=== PATIENT | female | born 1975 | race Native Hawaiian/Other Pacific Islander ===

== ENCOUNTER 2016-07-12 12:47 | Outpatient (CLI) | payer BC | END 2016-07-12 12:51 | disposition short-term general hospital (02) | LOC: AMB 12:47 | DX: R53.1 Weakness (principal); R00.0 Tachycardia, unspecified; I10 Essential (primary) hypertension | CPT/HCPCS: A0425; A0427 ==

== ENCOUNTER 2016-07-12 12:52 | Emergency (ER) | payer BC ==
[~2016-07-12] VITALS: Ht 180.3 cm; Wt 115.2 kg
[2016-07-12 13:00] VITALS: TEMP 98.3
[2016-07-12 16:00] VITALS: BP 150/78
== END 2016-07-12 19:18 | disposition home or self-care (01) ==
LOC: ED 12:52
DX: T78.49XA Other allergy, initial encounter (principal)
CPT/HCPCS: 96361; 96374; 96375; 99284; J1100; J1200

== ENCOUNTER 2017-03-16 09:28 | Outpatient (CLI) | payer BC | END 2017-03-16 10:30 | disposition home or self-care (01) | LOC: MAMMO 09:28 | DX: Z12.31 Encounter for screening mammogram for malignant neoplasm of breast (principal) ==

== ENCOUNTER → 2017-05-06 09:04 | Outpatient (CLI) | payer BC | END | disposition home or self-care (01) | LOC: MAMMO 04-20 09:00 | DX: R92.2 Inconclusive mammogram (principal) ==

== ENCOUNTER 2017-06-16 13:57 | Emergency (ER) | payer BC ==
[~2017-06-16] VITALS: Ht 180.3 cm; Wt 112.5 kg
[2017-06-16 15:51] LABS: PLATELET COUNT 271 K/uL (152-353)
[2017-06-16 15:53] LABS: SODIUM 138 mmol/L (136-145)
[2017-06-16 16:27] VITALS: BP 145/76; TEMP 97.2
== END 2017-06-16 16:33 | disposition home or self-care (01) ==
LOC: ED 13:57
PROVIDERS: Family Medicine
DX: F41.9 Anxiety disorder, unspecified (principal)
CPT/HCPCS: 80048; 84484; 85027; 93005; 96372; 99283; J2060; J2270

== ENCOUNTER 2017-08-27 08:40 | Emergency (ER) | payer BC ==
[~2017-08-27] VITALS: Ht 180.3 cm; Wt 109.8 kg
[2017-08-27 10:21] LABS: PLATELET COUNT 221 K/uL (152-353)
[2017-08-27 14:00] VITALS: BP 157/99; TEMP 97.9
== END 2017-08-27 14:00 | disposition home or self-care (01) ==
LOC: ED 08:40
PROVIDERS: Family Medicine
DX: F41.9 Anxiety disorder, unspecified (principal)
CPT/HCPCS: 36415; 80048; 84484; 85027; 85379; 93005; 96374; 99284; J2060; J2405; Q9963

== ENCOUNTER 2017-09-14 10:56 | Outpatient (CLI) | payer BC | END 2017-09-14 22:04 | disposition home or self-care (01) | LOC: LABW 10:56 | DX: R79.1 Abnormal coagulation profile (principal) | CPT/HCPCS: 36415; 85379 ==

== ENCOUNTER 2017-10-21 09:06 | Outpatient (CLI) | payer BC | END 2017-10-21 23:21 | disposition home or self-care (01) | LOC: CT 09:06 | DX: R51 Headache (principal); R42 Dizziness and giddiness ==

== ENCOUNTER 2018-01-07 07:56 | Outpatient (CLI) | payer BC | END 2018-01-07 19:32 | disposition home or self-care (01) | LOC: LABW 07:56 | DX: R53.83 Other fatigue (principal); E03.9 Hypothyroidism, unspecified; R73.01 Impaired fasting glucose; R63.5 Abnormal weight gain | CPT/HCPCS: 36415; 82533; 82627; 82728; 83036; 83540; 83550; 84146; 84305; 84402; 84403; 86376 ==

== ENCOUNTER 2018-01-25 08:06 | Outpatient (CLI) | payer BC | END 2018-01-25 19:14 | disposition home or self-care (01) | LOC: US 08:06 | DX: E04.0 Nontoxic diffuse goiter (principal) ==

== ENCOUNTER 2018-02-15 07:48 | Outpatient (CLI) | payer BC | END 2018-02-15 19:18 | disposition home or self-care (01) | LOC: LABW 07:48 | DX: E03.9 Hypothyroidism, unspecified (principal) | CPT/HCPCS: 36415; 84443 ==

== ENCOUNTER 2019-06-07 14:39 | Outpatient (CLI) | payer BC | END 2019-06-07 19:10 | disposition home or self-care (01) | LOC: MAMMO 14:39 | DX: Z12.31 Encounter for screening mammogram for malignant neoplasm of breast (principal) ==

== ENCOUNTER 2020-08-15 07:46 | Outpatient (CLI) | payer BC | END 2020-08-15 19:16 | disposition home or self-care (01) | LOC: US 07:46 → MAMMO 08:30 → US 19:16 | PROVIDERS: ATTEND Nurse Practitioner Family | DX: R10.11 Right upper quadrant pain (principal); R11.0 Nausea; R10.13 Epigastric pain; Z12.31 Encounter for screening mammogram for malignant neoplasm of breast ==